=== PATIENT | female | born 1970 | race Caucasian/White ===

== ENCOUNTER 2023-11-24 15:08 | Emergency (ER) | payer OTHER, SELFPAY ==
[2023-11-24 15:16] VITALS: BP 158/69; PULSE 73; RESP 18; TEMP 37.2; O2SAT 93
[2023-11-24 15:35] VITALS: BP 158/69; PULSE 73; RESP 18; TEMP 37.2; O2SAT 93
--- NOTE | 2023-11-24 15:44 | ED.SKABFB ---
HPI - Skin/Abscess/Foreign Bdy General Chief complaint: Skin/Abscess/Foreign Body Stated complaint: Skin Problem Legs/Feet Time Seen by Provider: 11/24/23 15:30 Source: patient, RN notes reviewed and old records reviewed Mode of arrival: ambulatory Limitations: no limitations History of Present Illness HPI narrative: 53 year old female presents to [facility] care with complaints redness, swelling, itching and pain to bilateral lower extremities for months,concerned to day due to redness of lower legs. Patient has noted large areas of spider veins to her bilateral lower legs, some redness to the anterior aspect of her lower legs with some edema noted pretibial and pedal. Patient also reports feelings of chest congestion with some wheezing and occasional cough, denies any acute dyspnea, states that she has been sleeping in recliner most of the time. Patient is daily tobacco user for many years, states she asked her PCP for medication to help her stop smoking and she states that he told her he doesn't prescribe those medications. MD complaint: other (redness with some swelling of her lower extremities, cough and wheezing) Onset (ago): month(s) (patient reports symptoms for months worse in last 2 weeks) Location: LLE and RLE Severity scale (1-10): 3 Quality: aching and pruritic Pain Consistency: intermittent Treatments prior to arrival: none Related Data Allergies Allergy/AdvReac Type Severity Reaction Status Date / Time No Known Allergies Allergy Verified 11/24/23 15:42 Review of Systems Review of Systems: CONSTITUTIONAL: Denies fever, chills, or sweats. EYES: Denies visual changes, redness, or discharge. ENT: Denies rhinorrhea, congestion, sore throat, or otalgia. CARDIOVASCULAR: Denies chest pain, palpitations, or edema. RESPIRATORY: Reports cough, wheezing and some dyspnea with exertion. GASTROINTESTINAL: Denies abdominal pain, nausea, vomiting, or diarrhea. GENITOURINARY: Denies dysuria or hematuria. SKIN: Denies rash or itching. MUSCULOSKELETAL: Denies back pain, joint pain,pain to lower legs with some redness anterior lower legs with some swelling, states skin is itchy NEUROLOGIC: Denies headache, numbness, or weakness. PSYCHIATRIC: Denies anxiety or depression. All systems reviewed & are unremarkable except as noted in HPI and below PMFSH Surgical History Surgical History (Updated 08/03/24 @ 08:34 by Patsy Haji NP) History of hip surgery Previous section Social History Social History (Updated 11/25/23 @ 08:35 by Patsy Haji NP) Smoking status: Current every day smoker Tobacco type: cigarettes Alcohol intake: current Alcohol use details: social Substance use type: does not use Gender identity (if verbalized by the patient): Female Comments At time of signature, agree with nursing past medical, surgical, social and family history. There is no relevant family history pertinent to the presenting complaint Exam Narrative: GENERAL:-appearing older than stated age, well-nourished, and in no acute distress. HEAD: Normocephalic, atraumatic. EYES: PERRLA and EOMI. ENT: Nares clear, no rhinorrhea or epistaxis. Mucous membranes moist.TM's normal throat pink with no swelling NECK: Supple.no lymphadenopathy CHEST: Scattered wheezing throughout lung chatterjee on auscultation. No acute respiratory distress admits to some dyspnea with exertion no tachypnea noted.SAO2 93% on room air HEART: Regular rate and rhythm. No murmur heard. Normal peripheral pulses. ABDOMEN: Soft, nontender, nondistended, normal active bowel sounds. EXTREMITIES: Normal range of motion. trace pedal and pretibial edema to lower extremities with some redness of anterior lower legs with stated itching pedal pulses present bilateral, large areas of spider type of veins to legs. SKIN: Warm, dry, no rash. NEURO: No focal deficits. Alert and oriented x3. Course Course Emergency Course: Patient is aware of diagnosis, understand
== END 2023-11-24 16:14 | disposition home or self-care (01) ==
PROVIDERS: Emergency Provider Registered Nurse; PCP Internal Medicine
DX: L03.116 Cellulitis of left lower limb (principal); L03.115 Cellulitis of right lower limb
CPT/HCPCS: 99203; G0463